=== PATIENT | male | born 1960 | race Caucasian/White ===

== ENCOUNTER 2016-10-30 16:41 | Emergency (ER) | payer BC ==
[~2016-10-30] VITALS: Ht 180.3 cm; Wt 103.4 kg
[2016-10-30 18:09] LABS: HEMATOCRIT 54.1 % (38.0-50.0); MCH 31.4 PG (29.0-34.0); MCHC 34.9 G/DL (30.0-36.0); MCV 89.9 FL (86-99); MEAN PLAT.VOLUME 10.2 uM^3 (9.0-12.4); PLATELET COUNT 291 K/uL (156-360); RBC DIS.WIDTH-CV 12.9 % (11.8-14.6); RBC DIS.WIDTH-SD 42.2 % (39-53); RED BLOOD COUNT 6.02 M/uL (4.00-5.50); WHITE BLOOD COUNT 13.2 K/uL (4.1-10.2)
[2016-10-30 19:20] LABS: CHLORIDE 102 mEq/L (99-109); POTASSIUM 4.2 mEq/L (3.7-5.4); SODIUM 139 mEq/L (136-147)
[2016-10-30 19:22] LABS: GLUCOSE 115 mg/dL (70-99)
[2016-10-30 19:23] LABS: ANION GAP 13 MEQ/L (2-14)
[2016-10-30 19:24] LABS: TOTAL BILIRUBIN 2.2 mg/dL (0.0-1.0)
[2016-10-30 19:26] LABS: ALKALINE PHOSPHATASE 64 IU/L (3-129)
[2016-10-30 19:27] LABS: UREA NITROGEN (BUN) 9 mg/dL (9-23)
[2016-10-30 19:28] LABS: DIRECT BILIRUBIN 0.7 mg/dL (0.0-0.3)
[2016-10-30 19:29] LABS: LIPASE 22 U/L (1.0-51.0)
[2016-10-30 19:33] LABS: GFR ESTIMATE (CALCULATED) > 59 mL/min/
[2016-10-30 20:52] LABS: ADD MIUA? YES; BILIRUBIN NEGATIVE; BLOOD LARGE; COLOR YELLOW ((YELLOW)); GLUCOSE (STRIP) NEGATIVE; KETONES 5; LEUKOCYTES NEGATIVE; NITRITE NEGATIVE; PROTEIN (STRIP) 30; SPECIFIC GRAVITY 1.008 (1.000-1.030); UROBILINOGEN 0.2 MG/DL (0.2-1.0)
[2016-10-30 21:02] LABS: BACTERIA RARE /HPF; EPITHELIAL CELLS RARE /HPF; MUCUS 2+ /LPF; RED BLOOD CELLS TNTC /HPF (0-5); UCUL ADDED? NO; WHITE BLOOD CELLS 0-5 /HPF (0-5)
[2016-10-30] MEDS ORDERED: FLOMAX0.4 MG PO (22:34)
[2016-10-30] MEDS ORDERED: MOTRIN800 MG PO (22:34)
[2016-10-30] MEDS ORDERED: PERCOCET 5/31 TABLET PO (22:34)
[2016-10-30 22:40] VITALS: BP 139/95
== END 2016-10-30 23:15 | disposition home or self-care (01) ==
LOC: EME 16:41
DX: N20.0 Calculus of kidney (principal); R31.9 Hematuria, unspecified
CPT/HCPCS: 74176; 80048; 80076; 81003; 83690; 85027; 99281; 99284